=== PATIENT | female | born 1970 | race African-American/Black ===

== ENCOUNTER → 2021-10-02 | Outpatient (CLI) | payer OTHER ==
--- NOTE | 2021-10-02 12:16 | RAD ---
Exam: XR KNEE_RT 1-2 VIEWS History: Chronic right knee pain Comparison: None. Findings: Osseous mineralization is normal. No acute fracture or dislocation. Mild degenerative changes with sm all tricompartmental osteophytes. No significant effusion. No focal soft tissue swelling. Impression: 1. Mild degenerative changes of the right knee. Electronically signed by: Zac Rachel MD (10/02/2021 12:14 PM) [id number]
--- NOTE | 2021-10-02 12:44 | RAD ---
Exam: XR HAND_RIGHT 2 VIEWS History: Chronic right hand pain Comparison: None. Findings: Osseous mineralization is normal. No acute fracture or dislocation. There are minimal interphalangeal joint osteophytes. No aggressive osseous erosive process. No focal soft tissue swelling. Mild cortic al of contour irregularity at the fifth metacarpal likely represents sequela of old injury. Impression: 1. Minimal degenerative changes without aggressive osseous erosive process or acute osseous abnormal ity in the right hand. Electronically signed by: Zac Rachel MD (10/02/2021 12:42 PM) [id number]
== END ==
LOC: RAD 10:43
PROVIDERS: ATTEND Family Medicine
DX: Z02.71 Encounter for disability determination (principal); M17.11 Unilateral primary osteoarthritis, right knee; M25.761 Osteophyte, right knee; M19.041 Primary osteoarthritis, right hand; M25.741 Osteophyte, right hand; M25.841 Other specified joint disorders, right hand
CPT/HCPCS: 73120; 73560